=== PATIENT | female | born 1950 | race Caucasian/White ===

== ENCOUNTER 2022-01-20 04:25 | Day surgery (SDC) | payer OTHER, BC ==
[2022-01-17 16:30] VITALS: BMI 27.5
[2022-01-20 08:20] VITALS: TEMP 97.6
[2022-01-20 08:44] VITALS: PULSE 60
[2022-01-20 09:05] VITALS: BP 104/59
== END 2022-01-20 09:18 | disposition home or self-care (01) ==
LOC: JASU-ENDO 04:25
PROVIDERS: ATTEND Internal Medicine Gastroenterology
PROC: 0DB78ZX Excision of Stomach, Pylorus, Via Natural or Artificial Opening Endoscopic, Diagnostic (ICD-10-PCS; 2022-01-20)
PROC: 0DB68ZX Excision of Stomach, Via Natural or Artificial Opening Endoscopic, Diagnostic (ICD-10-PCS; principal; 2022-01-20 08:00)
DX: K29.50 Unspecified chronic gastritis without bleeding (principal)
CPT/HCPCS: 88305-TC; 88342-TC